=== PATIENT | male | born 1965 | race African-American/Black ===

== ENCOUNTER 2016-06-10 13:56 | Emergency (ER) | payer BC, MEDICARE | END 2016-06-10 22:55 | disposition home or self-care (01) | LOC: ER 13:56 | DX: J20.9 Acute bronchitis, unspecified (principal); N28.9 Disorder of kidney and ureter, unspecified; E11.22 Type 2 diabetes mellitus with diabetic chronic kidney disease; N18.4 Chronic kidney disease, stage 4 (severe); E11.40 Type 2 diabetes mellitus with diabetic neuropathy, unspecified; Z99.2 Dependence on renal dialysis; Z79.899 Other long term (current) drug therapy; Z87.891 Personal history of nicotine dependence | CPT/HCPCS: 71020; 82947; 87804; 87880 ==

== ENCOUNTER 2016-06-15 11:13 | Emergency (ER) | payer BC, MEDICARE | END 2016-06-15 13:25 | disposition home or self-care (01) | LOC: ER 11:21 | DX: J01.00 Acute maxillary sinusitis, unspecified (principal); J01.20 Acute ethmoidal sinusitis, unspecified; J01.10 Acute frontal sinusitis, unspecified ==